=== PATIENT | female | born 1975 ===

== ENCOUNTER 2017-09-05 22:10 | Inpatient (IN) | payer BC ==
[2017-09-05 22:21] VITALS: BMI 35.4
--- NOTE | 2017-09-05 23:08 | C.PDOC ---
History Of Present Illness <Dung Kidd - Last Filed: 09/06/17 00:48> <Nel Greenfield - Last Filed: 09/06/17 02:27> 42 year old female is brought to the ED by EMS for evaluation. EMS was called initially because patient for reportedly acting agitated, on arrival patient was found barricaded yelling at staff " I am a danger to myself and others". Patient denies SI upon questioning but states having homicidal ideation but she states " I am not telling who tho". Patient states she has not slept in 4 days. Patient was restrained upon arrival for her safety and the safety of the staff. Crisis was notified upon arrival. (Dung Kidd) History Per: Patient, EMS History/Exam Limitations: clinical condition Onset/Duration Of Symptoms: Hrs Current Symptoms Are (Timing): Still Present Suicide/Self Injury Attempted (Context): None Modifying Factor(s): None Associated Symptoms: Agitation, Suicidal Plan. denies: Suicidal Thoughts Involuntary Hold By: Local Law Enforcement Recent travel outside of the [facility]: No Additional History Per: Patient, EMS, Law Enforcement <Dung Kidd - Last Filed: 09/06/17 00:48> <Nel Greenfield - Last Filed: 09/06/17 02:27> Time Seen by Provider: 09/05/17 22:41 Chief Complaint (Nursing): Psychiatric Evaluation Past Medical History Reviewed: Historical Data, Nursing Documentation, Vital Signs - Medical History PMH: Anxiety, Depression, HTN, Post Traumatic Stress Disorder Surgical History: No Surg Hx Family History: States: Unknown Family Hx - Social History Hx Alcohol Use: Yes Hx Substance Use: No (DENIES) - Immunization History Hx Tetanus Toxoid Vaccination: No Hx Influenza Vaccination: No Hx Pneumococcal Vaccination: No <Dung Kidd - Last Filed: 09/06/17 00:48> Vital Signs: Last Vital Signs Temp Pulse 84 09/06/17 02:02 Resp 18 09/06/17 02:02 BP 133/79 09/06/17 02:02 Pulse Ox 96 09/06/17 02:02 Review Of Systems Except As Marked, All Systems Reviewed And Found Negative. Psych: Positive for: Anxiety, Psychosis <Dung Kidd - Last Filed: 09/06/17 00:48> Physical Exam - Physical Exam Appears: Non-toxic, Combative, Agitated, Other (bizarre affect) Skin: Normal Color, Warm, Dry Head: Atraumatic, Normacephalic Eye(s): bilateral: Normal Inspection Oral Mucosa: Moist Neck: Normal ROM, Supple Chest: Symmetrical Cardiovascular: Rhythm Regular Respiratory: Normal Breath Sounds, No Rales, No Rhonchi, No Wheezing Gastrointestinal/Abdominal: Soft, No Tenderness, No Guarding, No Rebound Extremity: Normal ROM, No Tenderness, No Swelling Neurological/Psych: Oriented x3 Gait: Steady <Dung Kidd - Last Filed: 09/06/17 00:48> ED Course And Treatment - Laboratory Results Result Diagrams: 09/06/17 01:03 09/06/17 00:48 <Nel Greenfield - Last Filed: 09/06/17 02:27> Medical Decision Making <Dung Kidd - Last Filed: 09/06/17 00:48> <Nel Greenfield - Last Filed: 09/06/17 02:27> Medical Decision Making: Plan: * Labs * 1:1 Obs * UA Patient continues to refuse lab work. Crisis recommends [place] screener, patient will be restrained for her safety and safety of the staff. 1200: pt now agrees to labs and voluntary admisison. endorsed to shift engineer, labs pending, crisis dispo. (Dung Kidd) Disposition <Dung Kidd - Last Filed: 09/06/17 00:48> Discussed With : Tabitha Zurita Comment: accepted the pt on her service and took over the care at 2:26 AM Doctor Will See Patient In The: Hospital Counseled Patient/Family Regarding: Studies Performed, Diagnosis - Disposition Disposition Time: 02:26 - POA Present On Arrival: None <Nel Greenfield - Last Filed: 09/06/17 02:27> - Disposition Disposition: HOSPITALIZED Condition: FAIR Forms: [facility] (Belgian) - Clinical Impression Clinical Impression: Major depression - Scribe Statement The provider has reviewed the documentation as recorded by the Scribe <Dung Kidd - Last Filed: 09/06/17 00:48> <Nel Greenfield - Last Filed: 09/06/17 02:27> - Scribe Statement Rian Lance All medical record entries made by the Scribe were at my direction and personally dictated by me. I have reviewed the chart and agree that the record accurately reflects my personal performance of the history, physical exam, medical decision making, and the department course for this patient. I have also personally directed, reviewed, and agree with the discharge instructions and disposition. (Dung Kidd) Decision To Admit <Dung Kidd - Last Filed: 09/06/17 00:48> - Pt Status Changed To: Hospital Disposition Of: Inpatient - Admit Certification Admit to Inpatient:: After my assessment, the patient will require hospitalization for at least two midnights. This is because of the severity of symptoms shown, intensity of services needed, and/or the medical risk in this patient being treated as an outpatient. - InPatient: Physician Admission Certification: I certify that this patient requires 2 or more midnights of care for the following reason:: After my assessment, the patient will require hospitalization for at least two midnights. This is because of the severity of symptoms shown, intensity of services needed, and/or the medical risk in this patient being treated as an outpatient. - . Bed Request Type: Psychiatry Admitting Physician: Tabitha Zurita <Nel Greenfield - Last Filed: 09/06/17 02:27> - . Patient Diagnosis: Major depression
[2017-09-06 00:59] LABS: HCG,QUALITATIVE URINE NEGATIVE (NEGATIVE)
[2017-09-06 01:00] LABS: BASO % 0.2 % (0.0-2.0); EOS % 0.1 % (0.0-4.0); HEMOGLOBIN 10.2 g/dL (11.0-16.0); LYMPH # 1.9 K/uL (1.0-4.3); LYMPH % 12.2 % (20.0-40.0); MEAN CELL VOLUME 73.5 fL (81.0-99.0); MEAN CORPUSCULAR HGB CONC 32.6 g/dL (33.0-37.0); MEAN PLATELET VOLUME 9.5 fL (7.2-11.7); MONO # 1.1 K/uL (0.0-0.8); MONO % 6.9 % (0.0-10.0); NEUT # 12.9 K/uL (1.8-7.0); NEUT % 80.6 % (50.0-75.0); RBC 4.25 Mil/uL (3.80-5.20); RED CELL DISTRIBUTION WIDTH 17.8 % (11.5-14.5)
[2017-09-06 01:00] LABS: SQUAMOUS EPITHIAL 2 /hpf (0-5); URINE BILIRUBIN NEGATIVE (NEGATIVE); URINE BLOOD NEGATIVE (NEGATIVE); URINE CLARITY Clear (Clear); URINE COLOR Yellow (YELLOW); URINE GLUCOSE (UA) NORMAL (Normal); URINE LEUKOCYTE ESTERASE NEG Leu/uL (Negative); URINE PROTEIN NEGATIVE (NEGATIVE); URINE UROBILINOGEN NORMAL mg/dL (0.2-1.0)
[2017-09-06 01:01] LABS: URINE BACTERIA OCC (<OCC)
[2017-09-06 01:07] LABS: ACETAMINOPHEN < 10.0 ug/mL (10.0-30.0); SALICYLATE < 1.0 mg/dL 1
[2017-09-06 01:08] LABS: ALB/GLOB RATIO 1.1 (1.0-2.1); ALT/SGPT 27 U/L (9-52); AST/SGOT 24 U/L (14-36); BLOOD UREA NITROGEN 7 mg/dL (7-17); CALCIUM 9.3 mg/dl (8.6-10.4); GFR AFRICAN-AMERICAN > 60; GFR NON-AFRICAN AMERICAN > 60
[2017-09-06 01:10] LABS: BARBITURATES, UR NEGATIVE (NEGATIVE); BENZODIAZEPINES, UR NEGATIVE (NEGATIVE); OPIATES, UR NEGATIVE (NEGATIVE)
[2017-09-06 02:05] LABS: PHENCYCLIDINE, UR POSITIVE (NEGATIVE)
--- NOTE | 2017-09-06 03:34 | PCM.BM ---
<Lorenzo,Radha - Last Filed: 09/06/17 03:32> Treatment Plan Problems - Problems identified on initial assessmt Major depression Date Initiated: 09/06/17 Time Initiated: 03:30 Assessment reference: NA Status: Active Treatment assets and liabiliti Patient Assests: cooperative, educated, ADL independent, good support system, negotiates basic needs - Milieu Protocol Maintain good personal hygiene: daily Encourage regular showers, daily Remind patient to perform daily oral care, daily Assist patient to perform ADL's Maintain personal safety: every shift Educate patient to report safety concerns to staff, every shift Monitor environment for contraband/sharps Medication safety: Monitor for expected outcome, potential side effects: every shift, Assess barriers to learning: every shift, Assess readiness for medication education: every shift <Cristina Babcock - Last Filed: 09/06/17 10:28> - Diagnosis (1) Bipolar disorder, curr episode mixed, severe, with psychotic features Status: Acute Interventions: 09/06/17 10:28 * Assess/adjust medications daily and /or as needed * See patient on an individual basis 7x/week to assess level of manic behaviors and stability * Discuss risks, benefits, side effects and alternatives of medications * <Laverne Sorenson - Last Filed: 09/06/17 11:42> Family Contact Family involvement: Family/SO is involved Family contact: Patient declines to allow family contact at present - Goals for Treatment Patient goals for treatment: "I want to go home." Discharge/Continuing Care - Education Needs Education Needs: Patient Medication, Patient Coping Skills, Patient Community resources - Discharge Discharge Criteria: Tolerates medication w/o severe side effects, Free of Suicidal thoughts, Free of Homicidal thoughts, Free of paranoid thoughts, Reduction of target symptoms Discharge to:: Home, With Family - Treatment Team Participation Discussed with Family/SO: No Was Patient/Family/SO present at Treatment Team Meeting: Yes
[2017-09-06 06:39] VITALS: RESP 20
--- NOTE | 2017-09-06 10:02 | PCM.PSYCH ---
Initial Psychiatric Evaluation - Initial Psychiatric Evaluation Type of Admission: Voluntary Legal Status: Capacity Chief Complaint (in patient's own words): I don't know why I'm here.' History of Present Illness and Precipitating Events: This is a 42 years old HF, who was escorted to the ED because of making homicidal and suicidal threats. As per the ED notes, patient was escorted to the ED by the police. She was very irritable and agitated so she was put on 4 points restraints. She was brought to the hospital by EMS and [employer] after she had a nervous breakdown at her home, where she lives with her two sons ages 20 and 10yrs. old. It was reported that she locked herself in her bathroom and was yelling out some homicidal and suicidal statements. Pt did admit to having a nervous breakdown because she had ran out of meds approx. one month ago. Pt said that she missed two appointments at [facility]. Pt denied knowing who her psychiatrist is, but she said her social workers name is Zari Amador. 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 Reports depressed mood and at times feelings of hopelessness and helplessness, poor sleep and poor appetite. She said that some of her stressors began to build up, such as the of her mother from cancer in 2016, her who killed himself 11yrs ago and her boyfriend who was murdered on the streets [place], 3yrs ago. She also reports racing thoughts, irritability and agitation and poor concentration. She reports of abusing PCP, ecstasy and marijuana. She reports auditory hallucinations noncommand type and that someone is following her. Past medical history None reported Current Medications: Active Medications Generic Name Dose Route Start Last Admin Trade Name Freq PRN Reason Stop Dose Admin Benztropine Mesylate 2 mg 09/06/17 03:11 Cogentin PO Q6 PRN Extra Pyramidal Symptoms Haloperidol 5 mg 09/06/17 03:11 Haldol PO 09/06/17 13:00 Q8 PRN Moderate Agitation Hydroxyzine HCl 25 mg 09/06/17 03:11 Atarax PO Q6 PRN Anxiety Lorazepam 2 mg 09/06/17 03:11 09/06/17 04:08 Ativan PO 09/06/17 13:00 2 mg Q8H PRN Administration Severe Agitation Pneumococcal Polyvalent Vaccine 0.5 ml 09/09/17 10:00 Pneumovax 23 Vaccine IM 09/09/17 10:01 .ONCE ONE Trazodone HCl 50 mg 09/06/17 03:15 09/06/17 03:43 Desyrel PO 50 mg HS PRN Administration Insomnia Past Psychiatric History - Past Psychiatric History Previous Treatment History: Inpatient Pertinent Medical Hx (Current Medical&Sleep Prob, Allergies): Allergies Allergy/AdvReac Type Severity Reaction Status Date / Time No Known Allergies Allergy Verified 09/05/17 22:30 Alprazolam [Xanax] 0.25 mg PO DAILY #5 tab 06/21/16 Review of Systems - Review of Systems All systems: reviewed and no additional remarkable complaints except - Psychiatric Psychiatric: Anxiety, Depression, Irritability, Mood Swings, Paranoia, Suicidal Ideation Mental Status Examination - Personal Presentation Personal Presentation: Looks stated age - Affect Affect: Constricted, Depressed - Motor Activity Motor Activity: Calm - Reliability in Providing Information Reliability in Providing Information: Poor, due to alteration in thoughts, Poor , due to altered mood - Speech Speech: Disorganized - Mood Mood: Depressed, Anxious - Formal Thought Process Formal Thought Process: Paranoia, Flight of ideas - Hallucinations/Delusions Delusions: Persecution - Obsessions/Compulsions Obsessions: No Compulsions: No - Cognitive Functions Orientation: Person, Place, Situation, Time Sensorium: Alert Attention/Concentration: Attentive Abstract Thinking: [place] Estimate of Intelligence: Below average Judgement: Imparied, as evidence by: Poor judgement, Imparied, as evidence by: Lack of insight into illness - Risk Risk: Suicidal, Homicidal, Withdrawal, Diminished functioning - Strength & Assets Inventory Strength & Assets Inventory: Family support - Limitations Limitations: Living alone DSM 5 DX - DSM 5 DSM 5 Diagnosis: Bipolar disorder mixed severe with psychotic features Post traumatic stress disorder chronic PCP use disorder moderate Cannabis use disorder severe - Recommended/Plan of Treatment Treatment Recommendations and Plan of Treatment: Bipolar disorder mixed severe with psychotic features -CBT -Psychoeducation -Supportive therapy, group therapy, individual therapy -Depakote 250 mg by mouth twice a day -Trazodone 50 mg by mouth daily at bedtime -Seroquel 50 mg PO QHS -Gabapentin 300 mg po TID Post traumatic stress disorder chronic -Psychoeducation -Supportive therapy, group therapy, individual therapy -Prazosin 5 mg by mouth daily at bedtime Cannabis use disorder severe -Psychoeducation -Supportive therapy, individual therapy -Use [place] for abstinence PCP use disorder moderate -Psychoeducation -Supportive therapy, individual therapy -Use [place] for abstinence - Smoking Cessation Smoking Cessation Initiated: No
[2017-09-06] MEDS: Divalproex 250 mg DR Tab PO SCH ×2 (10:43→17:26)
[2017-09-06] MEDS: Prazosin HCL 5 mg PO SCH (21:21)
[2017-09-07 06:58] VITALS: O2SAT 99
--- NOTE | 2017-09-07 08:04 | PCM.PYCHPN ---
Psychiatric Progress Note - Psychiatric Progress Note Patient seen today, length of contact: 15 min Patient Chief Complaint: I'm missing my mother.' Problems Identified/Issues Discussed: Patient seen and evaluated, chart reviewed and discussed with the nurse. As per staff, patient became increasingly disorganized and internally preoccupied, throughout the night. She kept on coming out of her room and calling and checking with someone in the middle of the night. When asked who she calling at this time, she replied she is 'calling to her mother in [place]'. Patient remained isolated, confined and withdrawn. She still reports of hearing voices and remained paranoid and delusional. She is taking medication and denies any side effects. Symptoms are improving but needs more time for stabilization. Supportive therapy and psychoeducation were given. Medication Change: Yes (Start Haldol) Medical Record Reviewed: Yes Mental Status Examination - Cognitive Function Orientation: Person, Place, Situation, Time Memory: Intact Attention: Poor Concentration: Poor Association: Loose Fund of Knowledge: Poor - Mood Mood: Depressed, Anxious - Affect Affect: Constricted, Depressed - Speech Speech: Soft - Formal Thought Process Formal Thought Process: Hallucinations, Delusions, Paranoia, Loosening of associations, Flight of ideas - Suicidal Ideation Suicidal Ideation: No - Homicidal Ideation Homicidal Ideation: No Goal/Treatment Plan - Goal/Treatment Plan Need for Continued Stay: Severe depression anxiety, Severe functional impairment Progress Toward Problem(s) and Goals/Treatment Plan: Bipolar disorder mixed severe with psychotic features -CBT -Psychoeducation -Supportive therapy, group therapy, individual therapy -Depakote 500 mg by mouth twice a day -Trazodone 50 mg by mouth daily at bedtime -Seroquel 50 mg PO QHS -Gabapentin 300 mg po TID -Haldol 5 mg by mouth twice a day Post traumatic stress disorder chronic -Psychoeducation -Supportive therapy, group therapy, individual therapy -Prazosin 5 mg by mouth daily at bedtime Cannabis use disorder severe -Psychoeducation -Supportive therapy, individual therapy -Use [place] for abstinence PCP use disorder moderate -Psychoeducation -Supportive therapy, individual therapy -Use [place] for abstinence - Smoking Cessation Smoking Cessation Initiated: No
[2017-09-07] MEDS: Divalproex 500 mg DR Tab PO SCH ×2 (10:33→17:37)
[2017-09-07] MEDS: Prazosin HCL 5 mg PO SCH (21:50)
[2017-09-08] MEDS: Divalproex 500 mg DR Tab PO SCH ×2 (09:10→17:07)
--- NOTE | 2017-09-08 17:33 | PCM.PYCHPN ---
Psychiatric Progress Note - Psychiatric Progress Note Patient seen today, length of contact: 15 min Patient Chief Complaint: I'm missing my mother.' Problems Identified/Issues Discussed: Patient seen and evaluated, chart reviewed and discussed with the nurse. As per staff, patient became increasingly disorganized and internally preoccupied, throughout the night. She kept on coming out of her room and calling and checking with someone in the middle of the night. When asked who she calling at this time, she replied she is 'calling to her mother in [facility]'. Patient remained isolated, confined and withdrawn. She still reports of hearing voices and remained paranoid and delusional. She is taking medication and denies any side effects. Symptoms are improving but needs more time for stabilization. Supportive therapy and psychoeducation were given. Medication Change: Yes (Start Haldol) Medical Record Reviewed: Yes Mental Status Examination - Cognitive Function Orientation: Person, Place, Situation, Time Memory: Intact Attention: Poor Concentration: Poor Association: Loose Fund of Knowledge: Poor - Mood Mood: Depressed, Anxious - Affect Affect: Constricted, Depressed - Speech Speech: Soft - Formal Thought Process Formal Thought Process: Hallucinations, Delusions, Paranoia, Loosening of associations, Flight of ideas - Suicidal Ideation Suicidal Ideation: No - Homicidal Ideation Homicidal Ideation: No Goal/Treatment Plan - Goal/Treatment Plan Need for Continued Stay: Severe depression anxiety, Severe functional impairment Progress Toward Problem(s) and Goals/Treatment Plan: Bipolar disorder mixed severe with psychotic features -CBT -Psychoeducation -Supportive therapy, group therapy, individual therapy -Depakote 500 mg by mouth twice a day -Trazodone 50 mg by mouth daily at bedtime -Seroquel 50 mg PO QHS -Gabapentin 300 mg po TID -Haldol 5 mg by mouth twice a day Post traumatic stress disorder chronic -Psychoeducation -Supportive therapy, group therapy, individual therapy -Prazosin 5 mg by mouth daily at bedtime Cannabis use disorder severe -Psychoeducation -Supportive therapy, individual therapy -Use [place] for abstinence PCP use disorder moderate -Psychoeducation -Supportive therapy, individual therapy -Use [place] for abstinence
[2017-09-08] MEDS: Prazosin HCL 5 mg PO SCH (21:02)
[2017-09-09 08:09] VITALS: BP 106/58; PULSE 87; TEMP 97.7
[2017-09-09] MEDS: Divalproex 500 mg DR Tab PO SCH (09:36)
[2017-09-09] MEDS ORDERED: Pneumococcal 23-Valent Vaccine IM ONE (10:00)
--- NOTE | 2017-09-09 10:20 | PCM.PYCHDC ---
Mental Status Examination - Mental Status Examination Orientation: Person, Place, Situation, Time Memory: Intact Mood: Neutral Affect: Constricted Speech: Soft Attention: WNL Concentration: WNL Association: WNL Fund of Knowledge: WNL Formal Thought Process: No Impairment Description of patient's judgement and insight: good, fair Psychotic Thoughts and Behaviors: denies any AVH Suicidal Ideation: No Current Homicidal Ideation?: No Discharge Summary - Discharge Note Reason for Hospitalization: This is a 42 years old HF, who was escorted to the ED because of making homicidal and suicidal threats. As per the ED notes, patient was escorted to the ED by the police. She was very irritable and agitated so she was put on 4 points restraints. She was brought to the hospital by EMS and [employer] after she had a nervous breakdown at her home, where she lives with her two sons ages 20 and 10yrs. old. It was reported that she locked herself in her bathroom and was yelling out some homicidal and suicidal statements. Pt did admit to having a nervous breakdown because she had ran out of meds approx. one month ago. Pt said that she missed two appointments at [facility]. Pt denied knowing who her psychiatrist is, but she said her social workers name is Zari Amador. 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 Reports depressed mood and at times feelings of hopelessness and helplessness, poor sleep and poor appetite. She said that some of her stressors began to build up, such as the of her mother from cancer in 2017, her who killed himself 11yrs ago and her boyfriend who was murdered on the streets of [place], 3yrs ago. She also reports racing thoughts, irritability and agitation and poor concentration. She reports of abusing PCP, ecstasy and marijuana. She reports auditory hallucinations noncommand type and that someone is following her. Consultations:: List each consultation separately and include: 1. Reason for request. 2. Findings. 3. Follow-up Summary of Hospital Course include:: 1. Description of specific treatment plan utilized for patients during their course of treatmen. 2. Summarize the time- course for resolution of acute symptoms and/or regressed behaviors. 3. Describe issues identified and worked on during hospitalization. 4. Describe medication utilized. 5. Describe medical problems identified and treated. 6. Reassessment of suicide risk Summary of Hospital Course: This is a 42 years old HF, who was escorted to the ED because of making homicidal and suicidal threats. As per the ED notes, patient was escorted to the ED by the police. She was very irritable and agitated so she was put on 4 points restraints. She was brought to the hospital by EMS and PD after she had a nervous breakdown at her home, where she lives with her two sons ages 20 and 10yrs. old. It was reported that she locked herself in her bathroom and was yelling out some homicidal and suicidal statements. Pt did admit to having a nervous breakdown because she had ran out of meds approx. one month ago. Pt said that she missed two appointments at [facility]. Pt denied knowing who her psychiatrist is, but she said her social workers name is Zari Amador. 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 Reports depressed mood and at times feelings of hopelessness and helplessness, poor sleep and poor appetite. She said that some of her stressors began to build up, such as the of her mother from cancer in 2017, her who killed himself 11yrs ago and her boyfriend who was murdered on the streets of [place], 3yrs ago. She also reports racing thoughts, irritability and agitation and poor concentration. She reports of abusing PCP, ecstasy and marijuana. She reports auditory hallucinations noncommand type and that someone is following her. Past medical history None reported - Diagnosis (1) Bipolar disorder, curr episode mixed, severe, with psychotic features Current Visit: Yes Status: Acute - Final Diagnosis (DSM 5) Condition upon Discharge: FAIR Disposition: HOME/ ROUTINE Follow-up Treatment Plan: Bipolar disorder mixed severe with psychotic features -CBT -Psychoeducation -Supportive therapy, group therapy, individual therapy -Depakote 500 mg by mouth twice a day -Trazodone 50 mg by mouth daily at bedtime -Seroquel 50 mg PO QHS -Gabapentin 300 mg po TID -Haldol 5 mg by mouth twice a day Post traumatic stress disorder chronic -Psychoeducation -Supportive therapy, group therapy, individual therapy -Prazosin 5 mg by mouth daily at bedtime Cannabis use disorder severe -Psychoeducation -Supportive therapy, individual therapy -Use [place] for abstinence PCP use disorder moderate -Psychoeducation -Supportive therapy, individual therapy -Use [place] for abstinence Prescriptions/Medication Reconciliation: Benztropine [Cogentin] 1 mg PO BID #60 tab Divalproex [Depakote DR] 500 mg PO BID #60 tcp Haloperidol [Haldol] 5 mg PO BID #60 tab traZODone [Desyrel] 50 mg PO HS PRN #30 tab PRN Reason: Insomnia
== END 2017-09-09 11:10 | disposition home or self-care (01) | DRG 885 ==
LOC: C.ER 22:10 → C.5E 09-06 02:25
PROVIDERS: ADMIT Psychiatry & Neurology Psychiatry; ATTEND Psychiatry & Neurology Psychiatry
PROC: GZHZZZZ Group Psychotherapy (ICD-10-PCS; principal; 2017-09-06)
PROC: GZ58ZZZ Individual Psychotherapy, Cognitive-Behavioral (ICD-10-PCS; 2017-09-06)
PROC: GZ56ZZZ Individual Psychotherapy, Supportive (ICD-10-PCS; 2017-09-06)
DX: F31.64 Bipolar disorder, current episode mixed, severe, with psychotic features (principal); R45.851 Suicidal ideations; F43.12 Post-traumatic stress disorder, chronic; I10 Essential (primary) hypertension; R45.850 Homicidal ideations; Z79.899 Other long term (current) drug therapy; F41.9 Anxiety disorder, unspecified; F12.20 Cannabis dependence, uncomplicated; F16.10 Hallucinogen abuse, uncomplicated

== ENCOUNTER 2017-09-16 12:58 | Emergency (ER) | payer BC ==
[2017-09-16 12:58] VITALS: BMI 35.4
[2017-09-16] MEDS ORDERED: Labetalol 5 mg/ml Inj 20ML IV STA (14:02)
[2017-09-16 14:28] LABS: BASO # 0.1 K/uL (0.0-0.2); BASO % 0.8 % (0.0-2.0); EOS # 0.1 K/uL (0.0-0.7); EOS % 0.5 % (0.0-4.0); HEMOGLOBIN 10.1 g/dL (11.0-16.0); LYMPH # 2.6 K/uL (1.0-4.3); LYMPH % 21.3 % (20.0-40.0); MEAN CORPUSCULAR HEMOGLOBIN 24.2 pg (27.0-31.0); MEAN CORPUSCULAR HGB CONC 32.2 g/dL (33.0-37.0); MEAN PLATELET VOLUME 9.6 fL (7.2-11.7); MONO % 7.8 % (0.0-10.0); NEUT # 8.6 K/uL (1.8-7.0); NEUT % 69.6 % (50.0-75.0); RBC 4.17 Mil/uL (3.80-5.20); RED CELL DISTRIBUTION WIDTH 17.8 % (11.5-14.5); WHITE BLOOD COUNT 12.3 K/uL (4.8-10.8)
[2017-09-16 15:04] LABS: ALB/GLOB RATIO 1.1 (1.0-2.1); ALT/SGPT 12 U/L (9-52); AST/SGOT 23 U/L (14-36); BLOOD UREA NITROGEN 6 mg/dL (7-17); CALCIUM 8.9 mg/dl (8.6-10.4); GFR AFRICAN-AMERICAN > 60; GFR NON-AFRICAN AMERICAN > 60
[2017-09-16 15:35] VITALS: BP 152/98; PULSE 94; RESP 14; TEMP 98.7; O2SAT 99
--- NOTE | 2017-09-16 15:50 | C.PDOC ---
History Of Present Illness 42 y/o female, w/PMXh of anxiety, depression, and PTSD, presents to the ER complaining of anxiety after she was discharged from the psychiatric department 5 days ago. Patient states that she was discharged with medications which are making her feel more anxious. Patient is also complaining of elevated BP and she is requesting medications for BP. Denies having suicidal ideation, homicidal ideation,CP, and SOB. Time Seen by Provider: 09/16/17 13:33 Chief Complaint (Nursing): Anxiety History Per: Patient History/Exam Limitations: no limitations Onset/Duration Of Symptoms: Days Current Symptoms Are (Timing): Still Present Severity: Moderate Past Medical History Reviewed: Historical Data, Nursing Documentation, Vital Signs Vital Signs: Last Vital Signs Temp 98.7 F 09/16/17 15:34 Pulse 94 H 09/16/17 15:34 Resp 14 09/16/17 15:34 BP 152/98 H 09/16/17 15:34 Pulse Ox 99 09/16/17 17:49 - Medical History PMH: Anxiety (feeling anxious), Depression (lack of energy), HTN, Post Traumatic Stress Disorder, Seizures (many yrs ago.) Denies: Diabetes, Hepatitis, HIV, Hypothyroidism, Sexually Transmitted Disease - [facility] Procedures GROUP PSYCHOTHERAPY (09/06/17) INDIVIDUAL PSYCHOTHERAPY, COGNITIVE-BEHAVIORAL (09/06/17) INDIVIDUAL PSYCHOTHERAPY, SUPPORTIVE (09/06/17) Family History: States: Unknown Family Hx - Social History Hx Alcohol Use: Yes (sociable) Hx Substance Use: Yes - Immunization History Hx Tetanus Toxoid Vaccination: No Hx Influenza Vaccination: No Hx Pneumococcal Vaccination: No Review Of Systems Except As Marked, All Systems Reviewed And Found Negative. Constitutional: Negative for: Fever, Chills Psych: Positive for: Anxiety Physical Exam - Physical Exam Appears: No Acute Distress Skin: Normal Color, Warm, Dry Head: Atraumatic, Normacephalic Eye(s): bilateral: Normal Inspection Nose: Normal Oral Mucosa: Moist Neck: Supple Chest: Symmetrical Cardiovascular: Rhythm Regular Respiratory: Normal Breath Sounds, No Rales, No Rhonchi, No Wheezing Gastrointestinal/Abdominal: Normal Exam, Soft, No Tenderness, No Guarding, No Rebound Neurological/Psych: Oriented x3, Normal Speech ED Course And Treatment - Laboratory Results Result Diagrams: 09/16/17 14:23 06/04/18 14:43 ECG: Interpreted By Me, Viewed By Me ECG Rhythm: Sinus Rhythm Interpretation Of ECG: NSR with normal intervals, normal axises, and no ST/ T wave abnormalities Rate From EC O2 Sat by Pulse Oximetry: 99 Medical Decision Making Medical Decision Making: Assessment: Anxiety Plan: --Labs --ECG --Catapres PO --Trandate IV Updates: On re-evaluation, patient's BP has improved. Patient has been started on a small dose of Norvasc for home. Patient has been advised to continue current medication regimen and has been discharged. Patient has been instructed to follow up with medical clinic in 2 days. Disposition Counseled Patient/Family Regarding: Studies Performed, Diagnosis, Need For Followup, Rx Given - Disposition Referrals: [facility] [Outside] Disposition: HOME/ ROUTINE Disposition Time: 15:47 Condition: IMPROVED Additional Instructions: follow up with your doctor in 2 days call to make an appointment take medications as prescribed return to ER if symptoms worsens or progress Prescriptions: amLODIPine [Norvasc] 5 mg PO DAILY #15 tab Instructions: High Blood Pressure (DC) Forms: [facility] (Estonian), General Discharge Instructions - Clinical Impression Clinical Impression: Anxiety, Hypertension - Scribe Statement The provider has reviewed the documentation as recorded by the Raj Billy Provider Attestation: All medical record entries made by the Coltenibstevie were at my direction and personally dictated by me. I have reviewed the chart and agree that the record accurately reflects my personal performance of the history, physical exam, medical decision making, and the department course for this patient. I have also personally directed, reviewed, and agree with the discharge instructions and disposition.
--- NOTE | 2017-09-17 12:37 | CARD ---
APPROVED REPORT EKG Measurement Heart [id number] MA [id number] <Conclusion> Normal sinus rhythm Minimal voltage criteria for LVH, may be normal variant Borderline ECG
== END 2017-09-16 15:53 | disposition home or self-care (01) ==
LOC: C.ER 12:58
DX: F41.9 Anxiety disorder, unspecified (principal); I10 Essential (primary) hypertension

== ENCOUNTER 2017-09-25 20:05 | Emergency (ER) | payer BC ==
[2017-09-25 20:05] VITALS: BMI 35.4
[2017-09-25 20:26] VITALS: BP 142/90; PULSE 101; RESP 16; TEMP 98.5; O2SAT 100
== END 2017-09-25 20:13 | disposition left against medical advice (07) ==
LOC: C.ER 20:05
DX: Z02.89 Encounter for other administrative examinations (principal); I10 Essential (primary) hypertension

== ENCOUNTER 2017-09-26 03:18 | Inpatient (IN) | payer BC ==
[2017-09-26 03:19] VITALS: BMI 35.4
--- NOTE | 2017-09-26 03:35 | C.PDOC ---
History Of Present Illness Patient presents to the ER stating she is depressed and wants to cut herself. Denies homicidal ideation. Time Seen by Provider: 09/26/17 03:35 Chief Complaint (Nursing): Psychiatric Evaluation History Per: Patient History/Exam Limitations: no limitations Onset/Duration Of Symptoms: Hrs Current Symptoms Are (Timing): Still Present Suicide/Self Injury Attempted (Context): None Modifying Factor(s): None Severity: None Pain Scale Rating Of: 0 Associated Symptoms: Suicidal Thoughts Involuntary Hold By: None Recent travel outside of the [place]: No Additional History Per: Patient Past Medical History Reviewed: Historical Data, Nursing Documentation, Vital Signs Vital Signs: Last Vital Signs Temp 98.5 F 09/26/17 03:49 Pulse 85 09/26/17 03:49 Resp 18 09/26/17 03:49 BP 106/72 09/26/17 03:49 Pulse Ox 97 09/26/17 03:49 - Medical History PMH: Anxiety (feeling anxious), Bipolar Disorder, Depression (lack of energy), HTN, Post Traumatic Stress Disorder, Schizophrenia, Seizures (many yrs ago.) - [facility] Procedures GROUP PSYCHOTHERAPY (09/06/17) INDIVIDUAL PSYCHOTHERAPY, COGNITIVE-BEHAVIORAL (09/06/17) INDIVIDUAL PSYCHOTHERAPY, SUPPORTIVE (09/06/17) Family History: States: No Known Family Hx - Social History Hx Alcohol Use: Yes (sociable) Hx Substance Use: Yes - Immunization History Hx Tetanus Toxoid Vaccination: No Hx Influenza Vaccination: No Hx Pneumococcal Vaccination: No Review Of Systems Constitutional: Negative for: Fever, Chills Cardiovascular: Negative for: Chest Pain, Palpitations Respiratory: Negative for: Cough, Shortness of Breath Psych: Positive for: Depression, Suicidal ideation. Negative for: Other ( Homicidal ideation) Physical Exam - Physical Exam Appears: Non-toxic, Other (Depressed affect) Skin: Warm, Dry Head: Normacephalic Eye(s): bilateral: Normal Inspection Oral Mucosa: Moist Neck: Supple Chest: Symmetrical, No Tenderness Cardiovascular: Rhythm Regular Respiratory: No Rales, No Rhonchi, No Wheezing Gastrointestinal/Abdominal: Soft, No Tenderness Back: Normal Inspection Extremity: Normal ROM Neurological/Psych: Oriented x3 Gait: Steady ED Course And Treatment - Laboratory Results Result Diagrams: 09/26/17 04:08 09/26/17 04:08 O2 Sat by Pulse Oximetry: 97 Pulse Ox Interpretation: Normal Progress Note: Blood work and urinalysis ordered. Crisis notified. Disposition Discussed With Dr.: Tabitha Zurita Comment: accepted the pt on her service and took over the care at 5:19AM Doctor Will See Patient In The: Hospital Counseled Patient/Family Regarding: Studies Performed, Diagnosis - Disposition Disposition: HOSPITALIZED Disposition Time: 03:35 Condition: FAIR Forms: [facility] (Slovenian) - POA Present On Arrival: None - Clinical Impression Clinical Impression: Major depressive disorder, recurrent, unspecified, Cannabis abuse - Scribe Statement The provider has reviewed the documentation as recorded by the Scribe Efraín Ragsdale All medical record entries made by the Scribe were at my direction and personally dictated by me. I have reviewed the chart and agree that the record accurately reflects my personal performance of the history, physical exam, medical decision making, and the department course for this patient. I have also personally directed, reviewed, and agree with the discharge instructions and disposition. Decision To Admit - Pt Status Changed To: Hospital Disposition Of: Inpatient - Admit Certification Admit to Inpatient:: After my assessment, the patient will require hospitalization for at least two midnights. This is because of the severity of symptoms shown, intensity of services needed, and/or the medical risk in this patient being treated as an outpatient. - InPatient: Physician Admission Certification: I certify that this patient requires 2 or more midnights of care for the following reason:: After my assessment, the patient will require hospitalization for at least two midnights. This is because of the severity of symptoms shown, intensity of services needed, and/or the medical risk in this patient being treated as an outpatient. - . Bed Request Type: Psychiatry Admitting Physician: Tabitha Zurita Patient Diagnosis: Major depressive disorder, recurrent, unspecified, Cannabis abuse
[2017-09-26 04:12] LABS: BASO % 0.3 % (0.0-2.0); EOS # 0.1 K/uL (0.0-0.7); EOS % 0.3 % (0.0-4.0); LYMPH # 2.1 K/uL (1.0-4.3); LYMPH % 12.6 % (20.0-40.0); MEAN CELL VOLUME 74.3 fL (81.0-99.0); MEAN CORPUSCULAR HEMOGLOBIN 23.4 pg (27.0-31.0); MEAN CORPUSCULAR HGB CONC 31.5 g/dL (33.0-37.0); MEAN PLATELET VOLUME 9.2 fL (7.2-11.7); MONO # 1.5 K/uL (0.0-0.8); NEUT # 12.9 K/uL (1.8-7.0); NEUT % 77.8 % (50.0-75.0); RBC 4.29 Mil/uL (3.80-5.20); RED CELL DISTRIBUTION WIDTH 18.2 % (11.5-14.5); WHITE BLOOD COUNT 16.5 K/uL (4.8-10.8)
[2017-09-26 04:17] LABS: SQUAMOUS EPITHIAL 4 /hpf (0-5); URINE BACTERIA RARE (<OCC); URINE BILIRUBIN NEGATIVE (NEGATIVE); URINE BLOOD NEGATIVE (NEGATIVE); URINE CLARITY Clear (Clear); URINE COLOR Straw (YELLOW); URINE GLUCOSE (UA) NORMAL (Normal); URINE LEUKOCYTE ESTERASE NEG Leu/uL (Negative); URINE PROTEIN NEGATIVE (NEGATIVE); URINE UROBILINOGEN NORMAL mg/dL (0.2-1.0)
[2017-09-26 04:28] LABS: BARBITURATES, UR NEGATIVE (NEGATIVE); BENZODIAZEPINES, UR NEGATIVE (NEGATIVE); OPIATES, UR NEGATIVE (NEGATIVE); PHENCYCLIDINE, UR NEGATIVE (NEGATIVE)
[2017-09-26 04:39] LABS: ALB/GLOB RATIO 1.2 (1.0-2.1); ALBUMIN 4.3 g/dL (3.5-5.0); AST/SGOT 31 U/L (14-36); BLOOD UREA NITROGEN 8 mg/dL (7-17); GFR AFRICAN-AMERICAN > 60; GFR NON-AFRICAN AMERICAN > 60
[2017-09-26 04:40] LABS: ALT/SGPT 21 U/L (9-52)
[2017-09-26] MEDS: Divalproex 500 mg DR Tab PO SCH ×2 (09:16→17:22)
--- NOTE | 2017-09-26 10:04 | PCM.PSYCH ---
Initial Psychiatric Evaluation - Initial Psychiatric Evaluation Type of Admission: Voluntary Legal Status: Capacity Chief Complaint (in patient's own words): I became depressed and suicidal.' History of Present Illness and Precipitating Events: This is a 42 years old female, who lives alone, came to the hospital with depressed mood and suicidal ideation. Chicle Grinder Feeder is familiar with the patient. She was just discharged from [facility] E, last month. She was very disorganized and internally preoccupied, and was responding to internal stimuli, In her last visit. Patient was discharged to her private psychiatrist. As per the patient she did not see her psychiatrist, stopped taking her medications and relapsed on marijuana. Pt reports the following: "All the medications ya'll ([facility]) gave me have me feeling suicidal;" And I don't want to take them no more so I can get my life back;" Over the past "3days" Pt has had re-occurring idx to "just cut myself" and to "just end my life"; Pt also complained that her med regime has made her feel: "light headed, fatigued, dizzy, sleep all day, robotic-like, no feeling"; In addition to the above, Pt has also had decrease in appetite, and reports losing "10lbs over the past 2wks". She reports racing thoughts, poor concentration, poor focus, irritability, agitation and depressed mood. She still appears somewhat disorganized but denies any auditory or visual hallucinations. She smokes marijuana and PCP but denies any other substance abuse. PMH HTN Current Medications: Active Medications Generic Name Dose Route Start Last Admin Trade Name Freq PRN Reason Stop Dose Admin Benztropine Mesylate 1 mg 09/26/17 10:00 09/26/17 09:16 Cogentin PO 1 mg DAILY ISA Administration Divalproex Sodium 500 mg 09/26/17 10:00 09/26/17 09:[address] PO 500 mg BID ISA Administration Haloperidol 5 mg 09/26/17 10:09/26/17 09:16 Haldol PO 5 mg BID ISA Administration Past Psychiatric History - Past Psychiatric History Previous Treatment History: Inpatient Pertinent Medical Hx (Current Medical&Sleep Prob, Allergies): Allergies Allergy/AdvReac Type Severity Reaction Status Date / Time No Known Allergies Allergy Verified 09/26/17 03:32 Divalproex [Depakote DR] 500 mg PO BID #60 tcp 09/09/17 Haloperidol [Haldol] 5 mg PO BID #60 tab 09/09/17 traZODone [Desyrel] 50 mg PO HS PRN #30 tab 09/09/17 amLODIPine [Norvasc] 5 mg PO DAILY #15 tab 09/16/17 amLODIPine [Norvasc] 5 mg PO DAILY #5 tab 09/26/17 Review of Systems - Review of Systems All systems: reviewed and no additional remarkable complaints except - Psychiatric Psychiatric: Anxiety, Irritability, Paranoia, Suicidal Ideation Mental Status Examination - Personal Presentation Personal Presentation: Looks stated age - Affect Affect: Broad - Motor Activity Motor Activity: Calm - Reliability in Providing Information Reliability in Providing Information: Fair - Speech Speech: Organized - Mood Mood: Depressed, Anxious - Formal Thought Process Formal Thought Process: Loosening of associations - Obsessions/Compulsions Obsessions: No Compulsions: No - Cognitive Functions Orientation: Person, Place, Situation, Time Sensorium: Alert Attention/Concentration: Attentive Abstract Thinking: [place] Estimate of Intelligence: Below average Judgement: Imparied, as evidence by: Poor judgement, Imparied, as evidence by: Lack of insight into illness - Risk Risk: Suicidal, Diminished functioning - Limitations Limitations: Living alone DSM 5 DX - DSM 5 DSM 5 Diagnosis: Bipolar disorder MRE mixed severe with psychotic features Cannabis use disorder severe PCP use disorder moderate - Recommended/Plan of Treatment Treatment Recommendations and Plan of Treatment: Bipolar disorder MRE mixed severe with psychotic features -CBT -Psychoeducation -Supportive therapy, group therapy, individual therapy -Haldol 5 mg by mouth twice a day -Cogentin 1 mg by mouth twice a day -Depakote 500 mg by mouth twice a day -Trazodone 500 mg by mouth daily at bedtime -Hydroxyzine 25 mg by mouth every 6 hours when necessary Cannabis use disorder severe -Monitor signs and symptoms -Use WA for abstinence PCP use disorder moderate -Monitor signs and symptoms -Use WA for abstinence HTN -Continue prescribed medications -Monitor for signs and symptoms - Smoking Cessation Smoking Cessation Initiated: No
--- NOTE | 2017-09-26 13:46 | PCM.BM ---
<Evelyne Segura - Last Filed: 09/26/17 13:44> Treatment Plan Problems - Problems identified on initial assessmt Depression Date Initiated: 09/26/17 Time Initiated: 13:44 Assessment reference: NA Status: Active Substance Abuse Date Initiated: 09/26/17 Time Initiated: 13:45 Assessment reference: NA Status: Active Treatment assets and liabiliti Patient Assests: cooperative, educated, ADL independent, good support system, negotiates basic needs, cognitively intact Patient Liabilities: substance abuse (THC), medical problems (HTN) - Milieu Protocol Maintain good personal hygiene: daily Encourage regular showers, daily Remind patient to perform daily oral care, daily Assist patient to perform ADL's (Self) Conduct patient checks and document Observation sheet: Q15 minutes (Safety) Maintain personal safety: every shift Educate patient to report safety concerns to staff, every shift Monitor environment for contraband/sharps Medication safety: Monitor for expected outcome, potential side effects: every shift, Assess barriers to learning: every shift, Assess readiness for medication education: every shift Milieu Narrative: Bipolar disorder MRE mixed severe with psychotic features -CBT -Psychoeducation -Supportive therapy, group therapy, individual therapy -Haldol 5 mg by mouth twice a day -Cogentin 1 mg by mouth twice a day -Depakote 500 mg by mouth twice a day -Trazodone 500 mg by mouth daily at bedtime -Hydroxyzine 25 mg by mouth every 6 hours when necessary Cannabis use disorder severe -Monitor signs and symptoms -Use LA for abstinence PCP use disorder moderate -Monitor signs and symptoms -Use LA for abstinence HTN -Continue prescribed medications -Monitor for signs and symptoms Discharge/Continuing Care - Treatment Team Participation Patient/Family/SO Statement: Bipolar disorder MRE mixed severe with psychotic features -CBT -Psychoeducation -Supportive therapy, group therapy, individual therapy -Haldol 5 mg by mouth twice a day -Cogentin 1 mg by mouth twice a day -Depakote 500 mg by mouth twice a day -Trazodone 500 mg by mouth daily at bedtime -Hydroxyzine 25 mg by mouth every 6 hours when necessary Cannabis use disorder severe -Monitor signs and symptoms -Use LA for abstinence PCP use disorder moderate -Monitor signs and symptoms -Use LA for abstinence HTN -Continue prescribed medications -Monitor for signs and symptoms <Laverne Sorenson - Last Filed: 09/27/17 11:35> Family Contact Family involvement: Family/SO is involved Family contact: Patient declines to allow family contact at present - Goals for Treatment Patient goals for treatment: "I need to go to therapy." Discharge/Continuing Care - Education Needs Education Needs: Patient Medication, Patient Coping Skills - Discharge Discharge Criteria: Tolerates medication w/o severe side effects, Reduction of target symptoms Discharge to:: Home - Treatment Team Participation Discussed with Family/SO: No Was Patient/Family/SO present at Treatment Team Meeting: Yes <Travis Carvalho - Last Filed: 09/29/17 08:03> - Diagnosis (1) Bipolar disorder, curr episode mixed, severe, with psychotic features Status: Acute Interventions: 09/29/17 08:03 * Assess/adjust medications daily and /or as needed * See patient on an individual basis 7x/week to assess level of manic behaviors and stability * Discuss risks, benefits, side effects and alternatives of medications *
[2017-09-27] MEDS: Divalproex 500 mg DR Tab PO SCH ×2 (10:18→17:07)
[2017-09-28 06:33] VITALS: O2SAT 101
[2017-09-28] MEDS: Divalproex 500 mg DR Tab PO SCH ×2 (09:06→17:11)
[2017-09-29 06:23] VITALS: BP 135/86; PULSE 88; RESP 18; TEMP 98.1
--- NOTE | 2017-09-29 08:03 | PCM.PYCHPN ---
Psychiatric Progress Note - Psychiatric Progress Note Patient seen today, length of contact: 16 min Patient Chief Complaint: "I'm OK" Problems Identified/Issues Discussed: The pt is seen, chart reviewed, case discussed with staff. The pt is compliant with medications and reports no side-effects. Symptoms are improving but needs more time to stabilize. She has low insight, only focused on leaving - risks discussed, agreed to wait After care discussed, support and psychoeducation given. Medication Change: Yes Medical Record Reviewed: Yes Mental Status Examination - Cognitive Function Orientation: Person, Place, Situation, Time Memory: Intact Attention: WNL Concentration: Poor Association: WNL Fund of Knowledge: WNL - Mood Mood: Depressed, Anxious - Affect Affect: Broad - Speech Speech: Appropriate - Formal Thought Process Formal Thought Process: Loosening of associations - Suicidal Ideation Suicidal Ideation: No - Homicidal Ideation Homicidal Ideation: No Goal/Treatment Plan - Goal/Treatment Plan Need for Continued Stay: Discharge may exacerbated symptoms, Severe functional impairment Progress Toward Problem(s) and Goals/Treatment Plan: Continue medications Support and psychoeducation daily Attend groups and activities daily After care planning by JERONIMO Estimated Date of D/C: 09/30/17
--- NOTE | 2017-09-29 08:07 | PCM.PYCHPN ---
Psychiatric Progress Note - Psychiatric Progress Note Patient seen today, length of contact: 17 min Patient Chief Complaint: "I want to leave soon" Problems Identified/Issues Discussed: The pt is seen, chart reviewed, case discussed with staff. Support and psychoeducation given, CBT and LA used briefly No new symptoms reported, improving slowly and needs more time However, she put in a 48-hr notice and will likely leave within that time period b/c she is not screenable at this time. Since she is high risk we will continue to treat and monitor. [facility] may be called if things change No SEs from medications, risks discussed. After care discussed Has low insight Medication Change: No Medical Record Reviewed: Yes Mental Status Examination - Cognitive Function Orientation: Person, Place, Situation, Time Memory: Intact Attention: WNL Concentration: Poor Association: WNL Fund of Knowledge: WNL - Mood Mood: Anxious - Affect Affect: Broad - Speech Speech: Appropriate - Formal Thought Process Formal Thought Process: Loosening of associations - Suicidal Ideation Suicidal Ideation: No - Homicidal Ideation Homicidal Ideation: No Goal/Treatment Plan - Goal/Treatment Plan Need for Continued Stay: Discharge may exacerbated symptoms, Severe functional impairment Progress Toward Problem(s) and Goals/Treatment Plan: Continue medications Support and psychoeducation daily Attend groups and activities daily After care planning by JERONIMO Estimated Date of D/C: 09/29/17 If changed, why: 48-hr
--- NOTE | 2017-09-29 09:20 | PCM.PYCHDC ---
Mental Status Examination - Mental Status Examination Orientation: Person, Place, Situation, Time Discharge Summary - Discharge Note Consultations:: List each consultation separately and include: 1. Reason for request. 2. Findings. 3. Follow-up Summary of Hospital Course include:: 1. Description of specific treatment plan utilized for patients during their course of treatmen. 2. Summarize the time- course for resolution of acute symptoms and/or regressed behaviors. 3. Describe issues identified and worked on during hospitalization. 4. Describe medication utilized. 5. Describe medical problems identified and treated. 6. Reassessment of suicide risk Summary of Hospital Course: She left a few days early, due to 48-hour. She is still somewhat hypomanic. She has an appointment on Sat at [facility] and agrees and takes meds. Seroquel added for insomnia nd mood. She will get Erick level as an outpatient. - Diagnosis (1) Bipolar disorder, curr episode mixed, severe, with psychotic features Current Visit: No Status: Acute - Final Diagnosis (DSM 5) Condition upon Discharge: FAIR Disposition: HOME/ ROUTINE Follow-up Treatment Plan: Continue medications Support and psychoeducation daily Attend groups and activities daily After care planning by JERONIMO Prescriptions/Medication Reconciliation: amLODIPine [Norvasc] 5 mg PO DAILY #30 tab Benztropine [Cogentin] 1 mg PO DAILY #30 tab Divalproex [Depakote DR] 500 mg PO BID #60 tcp Haloperidol [Haldol] 5 mg PO BID #60 tab QUEtiapine [Seroquel] 100 mg PO HS #30 tab traZODone [Desyrel] 100 mg PO HS PRN #30 tab PRN Reason: Insomnia
[2017-09-29] MEDS: Divalproex 500 mg DR Tab PO SCH (09:22)
[2017-09-29] MEDS ORDERED: Pneumococcal 23-Valent Vaccine IM ONE (10:00)
== END 2017-09-29 09:50 | disposition home or self-care (01) | DRG 885 ==
LOC: C.ER 03:18 → C.5E 05:18
PROVIDERS: ADMIT Psychiatry & Neurology Psychiatry; ATTEND Psychiatry & Neurology Psychiatry
PROC: GZ58ZZZ Individual Psychotherapy, Cognitive-Behavioral (ICD-10-PCS; principal; 2017-09-26)
PROC: GZ56ZZZ Individual Psychotherapy, Supportive (ICD-10-PCS; 2017-09-26)
DX: F31.64 Bipolar disorder, current episode mixed, severe, with psychotic features (principal); R45.851 Suicidal ideations; G47.00 Insomnia, unspecified; I10 Essential (primary) hypertension; R53.83 Other fatigue; F41.9 Anxiety disorder, unspecified; F12.20 Cannabis dependence, uncomplicated; F16.10 Hallucinogen abuse, uncomplicated

== ENCOUNTER 2018-08-24 06:31 | Inpatient (IN) | payer BC ==
[2018-08-24 06:32] VITALS: BMI 35.4
[2018-08-24 07:49] LABS: BASO # 0.1 K/uL (0.0-0.2); BASO % 0.5 % (0.0-2.0); EOS # 0.1 K/uL (0.0-0.7); EOS % 0.4 % (0.0-4.0); LYMPH # 2.5 K/uL (1.0-4.3); LYMPH % 13.6 % (20.0-40.0); MEAN CORPUSCULAR HEMOGLOBIN 22.1 pg (27.0-31.0); MEAN CORPUSCULAR HGB CONC 31.2 g/dL (33.0-37.0); MEAN PLATELET VOLUME 9.2 fL (7.2-11.7); MONO # 1.3 K/uL (0.0-0.8); MONO % 6.9 % (0.0-10.0); NEUT # 14.3 K/uL (1.8-7.0); NEUT % 78.6 % (50.0-75.0); NRBC % 0.1 % (0.0-2.0); RBC 4.51 Mil/uL (3.80-5.20); RED CELL DISTRIBUTION WIDTH 18.4 % (11.5-14.5); WHITE BLOOD COUNT 18.2 K/uL (4.8-10.8)
[2018-08-24 07:55] LABS: MEAN CELL VOLUME 70.9 fL (81.0-99.0)
[2018-08-24 08:05] LABS: ALB/GLOB RATIO 1.2 (1.0-2.1); ALBUMIN 4.8 g/dL (3.5-5.0); ALT/SGPT 20 U/L (9-52); AST/SGOT 29 U/L (14-36); BLOOD UREA NITROGEN 11 mg/dL (7-17); CALCIUM 9.3 mg/dl (8.6-10.4); GFR NON-AFRICAN AMERICAN > 60
--- NOTE | 2018-08-24 08:23 | C.PDOC ---
History Of Present Illness 43 year old female with PMHx of bipolar disorder and substance abuse presents to the ED requesting psychiatric evaluation. Reports noncompliance with bipolar disorder medications. Denies any headache, fever, chills, n/v/d, abdominal pain, or urinary symptoms. States she accidentally bit left upper lip several days ago. Pt is agitated and disruptive. Denies any SI/HI. Time Seen by Provider: 08/24/18 07:28 Chief Complaint (Nursing): Psychiatric Evaluation History Per: Patient History/Exam Limitations: no limitations Onset/Duration Of Symptoms: Days Current Symptoms Are (Timing): Still Present Suicide/Self Injury Attempted (Context): None Modifying Factor(s): None Associated Symptoms: Agitation. denies: Suicidal Thoughts, Suicidal Plan Past Medical History Reviewed: Historical Data, Nursing Documentation, Vital Signs Vital Signs: Last Vital Signs Temp 98.4 F 08/24/18 06:53 Pulse 96 H 08/24/18 07:40 Resp 20 08/24/18 07:40 BP 160/104 H 08/24/18 07:40 Pulse Ox 97 08/24/18 07:40 Primary Care Provider: Albania Adan - Medical History PMH: Anxiety, Bipolar Disorder, Depression, HTN, Post Traumatic Stress Disorder, Schizophrenia, Seizures (many yrs ago.) Denies: Diabetes, Hepatitis, HIV, Hypothyroidism, Sexually Transmitted Disease Other Surgeries: Hx of surgeries - [facility] GROUP PSYCHOTHERAPY (09/06/17) INDIVIDUAL PSYCHOTHERAPY, COGNITIVE-BEHAVIORAL (09/26/17) INDIVIDUAL PSYCHOTHERAPY, SUPPORTIVE (09/26/17) Family History: States: No Known Family Hx - Social History Hx Alcohol Use: Yes Hx Substance Use: Yes (PCP) - Immunization History Hx Tetanus Toxoid Vaccination: No Hx Influenza Vaccination: No Hx Pneumococcal Vaccination: No Review Of Systems Except As Marked, All Systems Reviewed And Found Negative. Constitutional: Negative for: Fever, Chills Respiratory: Negative for: Cough, Shortness of Breath Gastrointestinal: Negative for: Nausea, Vomiting, Abdominal Pain, Diarrhea Genitourinary: Negative for: Dysuria, Hematuria Neurological: Negative for: Headache, Dizziness Physical Exam - Physical Exam Appears: Non-toxic, No Acute Distress, Other (Flat affect, hypertensive ) Skin: Warm, Dry, No Rash Head: Normacephalic Eye(s): bilateral: Normal Inspection, PERRL, EOMI Nose: Normal Oral Mucosa: Moist Tongue: Other (healing skin avulsion to left upper lip) Neck: Supple Chest: Symmetrical Cardiovascular: Rhythm Regular Respiratory: Normal Breath Sounds, No Rales, No Rhonchi, No Wheezing Gastrointestinal/Abdominal: Soft, No Tenderness, Other (obese ) Extremity: Pedal Edema (mild pitting edema to b/l lower extremities ) Neurological/Psych: Oriented x3, Normal Speech Gait: Steady ED Course And Treatment - Laboratory Results Result Diagrams: 08/24/18 07:44 08/24/18 07:44 Lab Results: Total Bilirubin 0.4 mg/dL (0.2-1.3) 08/24/18 07:44 AST 29 U/L (14-36) 08/24/18 07:44 ALT 20 U/L (9-52) 08/24/18 07:44 Alkaline Phosphatase 73 U/L (38-126) 08/24/18 07:44 Total Protein 8.7 g/dL (6.3-8.3) H 08/24/18 07:44 Albumin 4.8 g/dL (3.5-5.0) 08/24/18 07:44 Globulin 3.9 gm/dL (2.2-3.9) 08/24/18 07:44 Albumin/Globulin Ratio 1.2 (1.0-2.1) 08/24/18 07:44 O2 Sat by Pulse Oximetry: 97 (RA) Pulse Ox Interpretation: Normal Medical Decision Making Medical Decision Making: Plan - EKG - Bloodwork - UA - HCG - Norvasc 5mg PO - Ativan 1mg PO - Crisis Eval Patient evaluated by workers compensation examiner. Pt will be admitted under Dr. Carvalho's service. Disposition - Disposition Disposition: HOSPITALIZED Disposition Time: 09:17 Condition: GUARDED - Clinical Impression Clinical Impression: Drug abuse, Hypertension - Scribe Statement The provider has reviewed the documentation as recorded by the Scribe Provider Attestation: Kristy Yung All medical record entries made by the Scribe were at my direction and personally dictated by me. I have reviewed the chart and agree that the record accurately reflects my personal performance of the history, physical exam, medical decision making, and the department course for this patient. I have also personally directed, reviewed, and agree with the discharge instructions and disposition. Decision To Admit - Pt Status Changed To: Hospital Disposition Of: Inpatient - Admit Certification Admit to Inpatient:: After my assessment, the patient will require hospitalization for at least two midnights. This is because of the severity of symptoms shown, intensity of services needed, and/or the medical risk in this patient being treated as an outpatient. - InPatient: Physician Admission Certification: I certify that this patient requires 2 or more midnights of care for the following reason:: patient needs inpatient psych management - . Bed Request Type: Psychiatry Admitting Physician: Travis Carvalho Patient Diagnosis: Drug abuse, Hypertension
[2018-08-24 08:31] LABS: SQUAMOUS EPITHIAL 1 /hpf (0-5); URINE BILIRUBIN NEGATIVE (NEGATIVE); URINE BLOOD NEGATIVE (NEGATIVE); URINE CLARITY Clear (Clear); URINE COLOR Straw (YELLOW); URINE GLUCOSE (UA) NORMAL (Normal); URINE LEUKOCYTE ESTERASE NEG Leu/uL (Negative); URINE PROTEIN NEGATIVE (NEGATIVE); URINE UROBILINOGEN NORMAL mg/dL (0.2-1.0)
[2018-08-24 08:35] LABS: HCG,QUALITATIVE URINE NEGATIVE (NEGATIVE)
[2018-08-24 08:44] LABS: BARBITURATES, UR NEGATIVE (NEGATIVE); BENZODIAZEPINES, UR NEGATIVE (NEGATIVE); OPIATES, UR NEGATIVE (NEGATIVE)
[2018-08-24 08:48] LABS: PHENCYCLIDINE, UR POSITIVE (NEGATIVE)
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
[2018-08-24] MEDS: Divalproex 500 mg DR Tab PO SCH ×2 (11:00→17:52)
--- NOTE | 2018-08-24 12:32 | PCM.BM ---
<Sravani Pompa - Last Filed: 08/24/18 12:31> Treatment Plan Problems - Problems identified on initial assessmt altered thought process Date Initiated: 08/24/18 Time Initiated: 12:31 Assessment reference: NA Status: Active Anxiety Date Initiated: 08/24/18 Time Initiated: 12:31 Assessment reference: NA Status: Active Treatment assets and liabiliti Patient Assests: cooperative, educated, ADL independent, good support system, negotiates basic needs, cognitively intact Patient Liabilities: poor support system, substance abuse, medical problems - Milieu Protocol Maintain good personal hygiene: daily Encourage regular showers, daily Remind patient to perform daily oral care, daily Assist patient to perform ADL's Conduct patient checks and document Observation sheet: Q15 minutes Maintain personal safety: every shift Educate patient to report safety concerns to staff, every shift Monitor environment for contraband/sharps Medication safety: Monitor for expected outcome, potential side effects: every shift, Assess barriers to learning: every shift, Assess readiness for medication education: every shift <Cristina Babcock - Last Filed: 08/25/18 11:06> - Diagnosis (1) Bipolar disorder, curr episode mixed, severe, with psychotic features Status: Acute Interventions: 08/25/18 11:06 * Assess/adjust medications daily and /or as needed * See patient on an individual basis 7x/week to assess level of manic behaviors and stability * Discuss risks, benefits, side effects and alternatives of medications * (2) Cannabis abuse Status: Acute Interventions: 08/25/18 11:07 * Assess 7x/week regarding severity of withdrawal * Educate regarding risks, benefits, side effects and alternatives of medications * Use Motivational Interviewing for abstinence * Use CBT for relapse prevention * Medication management for withdrawal symptoms * Encourage medication assisted treatment * <Laverne Sorenson - Last Filed: 08/25/18 13:12> Family Contact Family involvement: Family/SO is involved Family contact: Patient declines to allow family contact at present - Goals for Treatment Patient goals for treatment: "I want to go home." Discharge/Continuing Care - Education Needs Education Needs: Patient Medication, Patient Coping Skills - Discharge Discharge Criteria: Tolerates medication w/o severe side effects, Reduction of target symptoms Discharge to:: Home - Treatment Team Participation Discussed with Family/SO: No Was Patient/Family/SO present at Treatment Team Meeting: Yes
[2018-08-24] MEDS ORDERED: Pneumococcal 23-Valent Vaccine IM ONE (14:00)
[2018-08-25 06:43] VITALS: RESP 20
[2018-08-25] MEDS: Divalproex 500 mg DR Tab PO SCH ×2 (09:01→17:34)
[2018-08-25] MEDS ORDERED: Potassium Chloride 20 mEq ER Tab PO ONE (10:30)
--- NOTE | 2018-08-25 10:51 | PCM.PYCHPN ---
Psychiatric Progress Note - Psychiatric Progress Note Patient seen today, length of contact: 15 min Medication Change: Yes Medical Record Reviewed: Yes Mental Status Examination - Cognitive Function Orientation: Person, Place, Situation, Time Memory: Intact Attention: WNL Concentration: Poor Association: WNL Fund of Knowledge: Poor - Mood Mood: Depressed, Anxious - Affect Affect: Constricted, Depressed - Speech Speech: Soft - Formal Thought Process Formal Thought Process: Hallucinations, Delusions - Suicidal Ideation Suicidal Ideation: No - Homicidal Ideation Homicidal Ideation: No Goal/Treatment Plan - Goal/Treatment Plan Need for Continued Stay: Remain at risks for inpatient hospitalization Progress Toward Problem(s) and Goals/Treatment Plan: Bipolar 1 disorder, mixed episode, severe PTSD Cannabis use disorder, severe PCP use disorder, severe Rule out amphetamine use disorder Rule out personality disorder Resume Depakote 500 twice a day DC Zoloft 50 once a day Resume Seroquel 100 at bedtime Resume gabapentin 300 mg 3 times a day Support and psychoeducation Individual and group therapy Structure and limit setting DCPP is contacted [place] for relapse prevention and abstinence Refer to outpatient program or day treatment program Consider IOP for substance use
[2018-08-25] MEDS ORDERED: Amoxicillin-Clav 500-125 mg Tab PO SCH (14:00)
[2018-08-25] MEDS: Amoxicillin-Clav 875-125 mg Tab PO SCH (14:53)
--- NOTE | 2018-08-25 17:52 | CARD ---
APPROVED REPORT Date of service: 08/24/2018 EKG Measurement Heart [id number] <Conclusion> Sinus tachycardia Minimal voltage criteria for LVH, may be normal variant Borderline ECG
[2018-08-26] MEDS: Amoxicillin-Clav 875-125 mg Tab PO SCH (02:27)
[2018-08-26 06:58] VITALS: BP 142/95; PULSE 80; TEMP 98.5; O2SAT 98
[2018-08-26] MEDS ORDERED: Divalproex 500 mg DR Tab PO SCH (09:52)
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
[2018-08-27] MEDS ORDERED: Pneumococcal 23-Valent Vaccine IM ONE (10:00)
== END 2018-08-26 10:15 | disposition left against medical advice (07) | DRG 885 ==
LOC: C.ER 06:31 → C.5E 09:18
PROVIDERS: ADMIT Psychiatry & Neurology Psychiatry; ATTEND Psychiatry & Neurology Psychiatry
PROC: GZHZZZZ Group Psychotherapy (ICD-10-PCS; principal; 2018-08-24)
PROC: GZ56ZZZ Individual Psychotherapy, Supportive (ICD-10-PCS; 2018-08-24)
DX: F31.63 Bipolar disorder, current episode mixed, severe, without psychotic features (principal); I10 Essential (primary) hypertension; Z91.14 Patient's other noncompliance with medication regimen; F43.10 Post-traumatic stress disorder, unspecified; F16.10 Hallucinogen abuse, uncomplicated; F14.10 Cocaine abuse, uncomplicated